=== PATIENT | female | born 1995 | race Caucasian/White ===

== ENCOUNTER 2016-08-25 13:37 | Inpatient (IN) | payer OTHER ==
[~2016-08-25] VITALS: Ht 165.1 cm; Wt 57.0 kg
[2016-08-25 14:51] LABS: BASO % 1.2 %; BASO ABS # 0.05 K/uL (0-0.2); COMPLETE YES; EOS % 4.6 %; IG% 0.2 %; LYMPH % 40.2 %; LYMPH ABS # 1.65 K/uL (1.2-3.4); MEAN CORPUSCULAR HEMOGLOBIN 29.8 pg (25-34); MEAN CORPUSCULAR HGB CONC 34.6 g/dl (32-36); MEAN PLATELET VOLUME 10.7 fL (7.4-10.4); MONO % 5.4 %; NEUT % 48.4 %; PLATELET COUNT 204 K/uL (130-400)
[2016-08-25 15:03] LABS: ALT/SGPT 20 U/L (12-78); BLOOD UREA NITROGEN 11 mg/dl (7-18); BUN/CREATININE RATIO 16.1 (10-20); CALCIUM 9.1 mg/dl (8.5-10.1); CARBON DIOXIDE 27 mmol/L (21-32); CHLORIDE 104 mmol/L (98-107); CREATININE 0.67 mg/dl (0.60-1.20); GLUCOSE 87 mg/dl (70-99); POTASSIUM 3.7 mmol/L (3.5-5.1); SODIUM 140 mmol/L (136-145)
[2016-08-25 15:14] LABS: ALKALINE PHOSPHATASE 61 U/L (45-117); AST/SGOT 21 U/L (15-37)
[2016-08-25 15:27] LABS: URINE APPEARANCE CLOUDY (CLEAR); URINE BILIRUBIN NEG (NEG); URINE COLOR DK YELLOW; URINE EPITHELIAL CELL AUTO >30 /lpf (0-5); URINE NITRITE NEG (NEG); URINE PH 6.5 (4.5-7.5); URINE SPECIFIC GRAVITY 1.028 (1.000-1.030); UROBILINOGEN NEG (NEG)
[2016-08-25 15:42] LABS: MANUAL MICROSCOPIC REQUIRED? NO; REVIEW REQ? YES
[2016-08-25] MEDS ORDERED: MELA1TAB5 PO (15:45)
[2016-08-25 16:05] LABS: BENZODIAZEPINE, URINE NEG (NEG); COCAINE,URINE NEG (NEG); PHENCYCLIDINE, URINE NEG (NEG)
[2016-08-25] MEDS ORDERED: NURSING VERBAL MED ORDER ONE (18:15)
[2016-08-25 18:27] VITALS: O2SAT 98
[2016-08-25] MEDS ORDERED: ALUMINUM/MAGNESIUM SUSP 30 ML UDC PO PRN (18:30)
[2016-08-25] MEDS ORDERED: SODIUM CHLORIDE 0.65% NA SOLN 45 ML (OCEAN) PRN (18:30)
[2016-08-25] MEDS ORDERED: BISMUTH SUBSALICYLATE PER ML OMNICELL CHARGE PO PRN (18:30)
[2016-08-25] MEDS ORDERED: hydrOXYzine HCL 25 MG TAB PO PRN ×2 (18:30)
[2016-08-25] MEDS ORDERED: MAGNESIUM HYDROXIDE SUSP 30 ML UDC PO PRN (18:30)
[2016-08-25] MEDS ORDERED: ACETAMINOPHEN 325 MG TAB PO PRN (18:30)
[2016-08-25 18:49] VITALS: BP 119/80; PULSE 99; TEMP 36.5; Ht 165.1 cm; Wt 57.0 kg
--- NOTE | 2016-08-25 22:22 | EMERGENCY ROOM VISIT NOTE ---
History Report prepared by Alex: Samanta Mortensen Under the Supervision of: Dr. Evan Marr D.O. First contact with patient: 14:00 Chief Complaint: MENTAL HEALTH EVALUATION Stated Complaint: DEPRESSION,ANXIETY History of Present Illness The patient is a 21 year old female who presents to the Emergency Room with complaints of worsening depressed mood which started several years ago. She states that she recently began to feel worse, but she cannot pinpoint any specific reasons. She was referred to the ED from [facility] where she sees a counselor. They were concerned about her suicidal thoughts and plans, specifically her possession of a knife and plan to jump off a building. She has had feeling of wanting to hurt herself for a long time. She states that she has suicidal thoughts everyday, but she tries to control herself. She has never been diagnosed with mental health problems before and is not on any medications. She has tried to hurt herself before and admits to scraping herself , hitting herself, and trying to overdose previously. She states that she feels unsafe everywhere. She states that everything is bad, and cannot pinpoint a specific incident making her worse. She is doing well in school. She admits to tobacco and alcohol use. Last semester, she tried some drugs. She takes melatonin to sleep. She denies any history of surgeries. Her LNMP was 2 days ago. Source of History: patient Onset: several years ago Position: other (global) Quality: other (depressed mood) Timing: worsening Review of Systems See HPI for pertinent positives & negatives. A total of 10 systems reviewed and were otherwise negative. Family History Pt reports no pertinent family history. Social History Smoking Status: Current Some Day Smoker Alcohol Use: occasionally Marital Status: single Occupation Status: [employer] student Current/Historical Medications Scheduled PRN Melatonin ( Melatonin), 3 MG PO HS PRN for Sleep Allergies Coded Allergies: No Known Allergies (Unverified , 08/25/16) Physical Exam Vital Signs Date Time Temp Pulse Resp B/P Pulse Ox O2 Delivery O2 Flow Rate FiO2 08/25/16 13:49 36.5 67 16 119/80 99 Room Air Physical Exam GENERAL: Patient is awake alert in no acute distress patient is resting comfortably and showing no signs of anxiety EYES: The conjunctivae are clear. The pupils are round and reactive. EARS, NOSE, MOUTH AND THROAT: The nose is without any evidence of any deformity. Mucous membranes are moist tongue is midline NECK: The neck is nontender and supple. RESPIRATORY: Normal respiratory effort is noted there is no evidence of wheezing rhonchi or rales CARDIOVASCULAR: Regular rate and rhythm noted there no murmurs rubs or gallops normal S1 normal S2 GASTROINTESTINAL: The abdomen is soft. Bowel sounds are present in all quadrants. Abdomen is nontender MUSCULOSKELETAL/EXTREMITIES: There is no evidence of gross deformity full range of motion is noted in the hips and shoulders SKIN: There is no obvious evidence of any rash. There are no petechiae, pallor or cyanosis noted. NEUROLOGIC: Patient is awake alert and oriented x3 strength is symmetric patellar reflexes are 2+ bilaterally PSYCH: Affect is flat, makes poor eye contact at times. Currently admits to suicidal ideation, denies any acute plans. Medical Decision & Procedures Laboratory Results 08/25/16 14:15 Red Blood Count 4.30, Mean Corpuscular Volume 86.0, Mean Corpuscular Hemoglobin 29.8, Mean Corpuscular Hemoglobin Concent 34.6, Mean Platelet Volume 10.7, Neutrophils (%) (Auto) 48.4, Lymphocytes (%) (Auto) 40.2, Monocytes (%) (Auto) 5.4, Eosinophils (%) (Auto) 4.6, Basophils (%) (Auto) 1.2, Neutrophils # (Auto) 1.98, Lymphocytes # (Auto) 1.65, Monocytes # (Auto) 0.22, Eosinophils # (Auto) 0.19, Basophils # (Auto) 0.05 08/25/16 14:15 Test 08/25/16 14:15 08/25/16 15:00 White Blood Count 4.10 K/uL (4.8-10.8) Red Blood Count 4.30 M/uL (4.2-5.4) Hemoglobin 12.8 g/dL (12.0-16.0) Hematocrit 37.0 % (37-47) Mean Corpuscular Volume 86.0 fL (80-100) Mean Corpuscular Hemoglobin 29.8 pg (25-34) Mean Corpuscular Hemoglobin Concent 34.6 g/dl (32-36) Platelet Count 204 K/uL (130-400) Mean Platelet Volume 10.7 fL (7.4-10.4) Neutrophils (%) (Auto) 48.4 % Lymphocytes (%) (Auto) 40.2 % Monocytes (%) (Auto) 5.4 % Eosinophils (%) (Auto) 4.6 % Basophils (%) (Auto) 1.2 % Neutrophils # (Auto) 1.98 K/uL (1.4-6.5) Lymphocytes # (Auto) 1.65 K/uL (1.2-3.4) Monocytes # (Auto) 0.22 K/uL (0.11-0.59) Eosinophils # (Auto) 0.19 K/uL (0-0.5) Basophils # (Auto) 0.05 K/uL (0-0.2) RDW Standard Deviation 41.2 fL (36.4-46.3) RDW Coefficient of Variation 13.1 % (11.5-14.5) Immature Granulocyte % (Auto) 0.2 % Immature Granulocyte # (Auto) 0.01 K/uL (0.00-0.02) Anion Gap 9.0 mmol/L (3-11) Estimated GFR () 146.7 Estimated GFR (Non- 126.5 BUN/Creatinine Ratio 16.1 (10-20) Calcium Level 9.1 mg/dl (8.5-10.1) Total Bilirubin 0.5 mg/dl (0.2-1) Direct Bilirubin 0.1 mg/dl (0-0.2) Aspartate Amino Transf (AST/SGOT) 21 U/L (15-37) Alanine Aminotransferase (ALT/SGPT) 20 U/L (12-78) Alkaline Phosphatase 61 U/L (45-117) Total Protein 7.9 gm/dl (6.4-8.2) Albumin 4.1 gm/dl (3.4-5.0) Thyroid Stimulating Hormone (TSH) 1.580 uIu/ml (0.300-4.500) Ethyl Alcohol mg/dL < 3.0 mg/dl (0-3) Urine Color DK YELLOW Urine Appearance CLOUDY (CLEAR) Urine pH 6.5 (4.5-7.5) Urine Specific [place] 1.028 (1.000-1.030) Urine Protein TRACE (NEG) Urine Glucose (UA) NEG (NEG) Urine Ketones TRACE (NEG) Urine Occult Blood 3+ (NEG) Urine Nitrite NEG (NEG) Urine Bilirubin NEG (NEG) Urine Urobilinogen NEG (NEG) Urine Leukocyte Esterase SMALL (NEG) Urine WBC (Auto) 10-30 /hpf (0-5) Urine RBC (Auto) 10-30 /hpf (0-4) Urine Hyaline Casts (Auto) 10-30 /lpf (0-5) Urine Epithelial Cells (Auto) >30 /lpf (0-5) Urine Bacteria (Auto) 1+ (NEG) Urine Renal Epithelial Cells 0-5 /lpf (0-5) Urine Yeast (Auto) PRESENT (NONE PRSENT) Urine Test NEG (NEG) Urine Opiates Screen NEG (NEG) Urine Methadone, Qualitative NEG (NEG) Urine Barbiturates NEG (NEG) Urine Phencyclidine (PCP) Level NEG (NEG) Ur Amphetamine/Methamphetamine NEG (NEG) MDMA (Ecstasy) Screen NEG (NEG) Urine Benzodiazepines Screen NEG (NEG) Urine Cocaine Metabolite NEG (NEG) Urine Marijuana (THC) NEG (NEG) Laboratory results per my review. ED Course 1402: The patient was evaluated in room A5. A complete history and physical examination were performed. 1639: I reevaluated the patient. She is resting comfortably. 1833: The patient has been accepted to [address] [place] [address]. Upon reevaluation, the patient is resting comfortably. I discussed results and treatment plan with her. She verbalizes agreement and understanding. The patient will be evaluated for further management and care. Medical Decision Prior records/ancillary studies reviewed. Triage Nursing notes reviewed. The patient's history was concerning for possible psychiatric disturbance. Differential diagnosis: Etiologies such as mood disorder, infection, hypoglycemia, electrolyte abnormalities, cardiac sources, intracerebral event, toxicologic, neurologic, as well as others were entertained. The patient is a 21-year-old female who presented to the emergency department from [facility] for a mental health evaluation. The patient has been having problems with depression and suicidal ideation recently started having specific thoughts and plans of how she would commit suicide. The patient presented to the emergency department for a voluntary admission. She was medically cleared in the emergency department. She was reevaluated multiple times. She was evaluated by the mental health therapeutic case manager in the emergency department and then evaluated by the mental health delegate from [address] [place] [address]. She was felt to be a good candidate for inpatient management and she was agreeable this plan. The patient was reevaluated multiple times. Impression Primary Impression: Depression Additional Impression: Suicidal ideation Scribe Attestation The scribe's documentation has been prepared under my direction and personally reviewed by me in its entirety. I confirm that the note above accurately reflects all work, treatment, procedures, and medical decision making performed by me. Departure Information Dispostion Mental Health Acute Care Patient Instructions [facility] Problem Qualifiers
[2016-08-26 06:47] VITALS: BP_SYST 105; BP_SYST 111; BP_DIAS 64; BP_DIAS 76; PULSE 53; PULSE 75; TEMP 36.5
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
[2016-08-26] MEDS ORDERED: hydrOXYzine HCL 25 MG TAB PO PRN ×2 (14:30→22:00)
[2016-08-26] MEDS: hydrOXYzine HCL 25 MG TAB PO SCH (22:18)
[2016-08-27 06:41] VITALS: BP_SYST 92; BP_SYST 94; BP_DIAS 60; BP_DIAS 64; PULSE 80; TEMP 36.4
[2016-08-27 07:47] LABS: CHOLESTEROL/HDL RATIO 3.5
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
[2016-08-27] MEDS: hydrOXYzine HCL 25 MG TAB PO SCH (22:00)
[2016-08-28 06:52] VITALS: BP_SYST 101; BP_SYST 97; BP_DIAS 61; BP_DIAS 64; PULSE 61; PULSE 78; TEMP 36.4
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
[2016-08-28] MEDS ORDERED: ATR25 PO (09:44)
== END 2016-08-28 14:04 | disposition home or self-care (01) | DRG 885 ==
LOC: ENRESERVDT → ENRESERVTM → C.EDB 13:41 → C.MHU 18:13
PROVIDERS: ADMIT Psychiatry & Neurology Child & Adolescent Psychiatry; ATTEND Psychiatry & Neurology Child & Adolescent Psychiatry
DX: F33.9 Major depressive disorder, recurrent, unspecified (principal); R45.851 Suicidal ideations; F41.9 Anxiety disorder, unspecified; F17.210 Nicotine dependence, cigarettes, uncomplicated; F43.10 Post-traumatic stress disorder, unspecified; R00.0 Tachycardia, unspecified; Z79.899 Other long term (current) drug therapy